=== PATIENT | female | born 1995 | race Two or more races ===

== ENCOUNTER 2017-09-25 12:29 | Emergency (ER) | payer OTHER ==
[~2017-09-25] VITALS: Ht 160 cm; Wt 74.8 kg
[2017-09-25 12:29] VITALS: BP 126/69
== END 2017-09-25 12:57 | disposition home or self-care (01) ==
LOC: ER 12:38
DX: H00.021 Hordeolum internum right upper eyelid (principal); H10.10 Acute atopic conjunctivitis, unspecified eye; F10.10 Alcohol abuse, uncomplicated
CPT/HCPCS: 99281; A4606; Z7610; Z7502

== ENCOUNTER 2018-10-10 09:24 | Emergency (ER) | payer SELFPAY ==
[~2018-10-10] VITALS: Ht 160 cm; Wt 63.5 kg
[2018-10-10 09:38] VITALS: BP 112/70
== END 2018-10-10 10:01 | disposition home or self-care (01) ==
LOC: ER 09:37
DX: S83.8X1A Sprain of other specified parts of right knee, initial encounter (principal); Z60.2 Problems related to living alone; X58.XXXA Exposure to other specified factors, initial encounter; Y93.89 Activity, other specified; Y92.89 Other specified places as the place of occurrence of the external cause; Y99.8 Other external cause status